=== PATIENT | male | born 1975 | race Caucasian/White ===

== ENCOUNTER 2020-03-21 01:22 | Emergency (ER) | payer OTHER ==
[~2020-03-21] VITALS: Ht 188 cm; Wt 112.0 kg
[2020-03-21 01:34] VITALS: Ht 188 cm; Wt 112.0 kg
[2020-03-21 02:42] LABS: BASOPHIL % 0.2 % (0-2); PLATELET COUNT 196 x10^3mcL (130-400); RED CELL DISTRIBUTION WIDTH 13.3 % (11.5-14.5)
[2020-03-21 03:09] LABS: CALCIUM 9.1 mg/dL (8.5-10.1); CARBON DIOXIDE 30.5 mmol/L (21-32); CHLORIDE SERUM 100 mmol/L (98-107); CREATININE SERUM 1.1 mg/dL (0.7-1.3); GFR1 > 60 mL/min; GLUCOSE SERUM 138 mg/dL (74-106); POTASSIUM SERUM 3.9 mmol/L (3.5-5.1); SODIUM SERUM 137 mmol/L (136-145)
[2020-03-21 03:14] LABS: ALBUMIN 4.1 g/dL (3.4-5.0); ALKALINE PHOSPHATASE 75 U/L (46-116); ALT/SGPT 27 U/L (16-63); AST/SGOT 16 U/L (15-37); BILIRUBIN TOTAL 0.48 mg/dL (0.20-1.00); TOTAL PROTEIN, SERUM 8.3 g/dL (6.4-8.2)
[2020-03-21 04:04] VITALS: BP 192/100
== END 2020-03-21 04:04 | disposition home or self-care (01) ==
LOC: ED 01:22
PROVIDERS: Emergency Medicine
DX: K21.9 Gastro-esophageal reflux disease without esophagitis (principal); I10 Essential (primary) hypertension; Z88.0 Allergy status to penicillin

== ENCOUNTER 2020-03-21 10:10 | Inpatient (IN) | payer OTHER ==
[~2020-03-21] VITALS: Ht 188 cm; Wt 112.1 kg
[2020-03-21 10:44] VITALS: Ht 188 cm; Wt 112.1 kg
[2020-03-21 11:08] LABS: UA SPECIFIC GRAVITY 1.025 (1.005-1.035); microscopic required? YES; urine erythrocyte 2+ (NEGATIVE)
[2020-03-21 11:14] LABS: BASOPHIL % 0 % (0-2); PLATELET COUNT 216 x10^3mcL (130-400); RED CELL DISTRIBUTION WIDTH 13.4 % (11.5-14.5)
[2020-03-21 11:29] LABS: CALCIUM 9.3 mg/dL (8.5-10.1); CARBON DIOXIDE 23.8 mmol/L (21-32); CHLORIDE SERUM 98 mmol/L (98-107); GFR1 > 60 mL/min; GLUCOSE SERUM 160 mg/dL (74-106); POTASSIUM SERUM 3.2 mmol/L (3.5-5.1); SODIUM SERUM 134 mmol/L (136-145)
[2020-03-21 11:39] LABS: ALBUMIN 4.5 g/dL (3.4-5.0); ALKALINE PHOSPHATASE 68 U/L (46-116); ALT/SGPT 29 U/L (16-63); AST/SGOT 20 U/L (15-37); BILIRUBIN TOTAL 0.86 mg/dL (0.20-1.00); LIPASE 70 IU/L (73-393)
[2020-03-21 12:01] LABS: TOTAL PROTEIN, SERUM 8.8 g/dL (6.4-8.2)
[2020-03-21 19:20] VITALS: BP 198/111
[2020-03-21 20:00] VITALS: BP 173/100
[2020-03-21 21:20] LABS: MAGNESIUM 1.7 mg/dL (1.8-2.4); PHOSPHOROUS 2.2 mg/dL (2.5-4.9)
[2020-03-22 00:27] LABS: AMPHETAMINE QUAL UR NONE DETECTED (See below)
[2020-03-22 06:02] VITALS: BP 148/91
[2020-03-22 07:52] LABS: BASOPHIL % 0.1 % (0-2); PLATELET COUNT 170 x10^3mcL (130-400)
[2020-03-22 08:23] LABS: CALCIUM 8.9 mg/dL (8.5-10.1); CARBON DIOXIDE 26.5 mmol/L (21-32); CHLORIDE SERUM 99 mmol/L (98-107); GFR1 > 60 mL/min; GLUCOSE SERUM 122 mg/dL (74-106); PHOSPHOROUS 2.9 mg/dL (2.5-4.9); SODIUM SERUM 135 mmol/L (136-145)
[2020-03-22 10:05] VITALS: BP 150/93
[2020-03-22 11:56] VITALS: BP 142/90
[2020-03-22 16:52] VITALS: BP 134/84
[2020-03-22 20:30] VITALS: BP 142/88
[2020-03-23 05:48] VITALS: BP 142/91
[2020-03-23 06:38] LABS: BASOPHIL % 0.2 % (0-2); PLATELET COUNT 181 x10^3mcL (130-400); RED CELL DISTRIBUTION WIDTH 14.3 % (11.5-14.5)
[2020-03-23 07:04] LABS: CALCIUM 8.4 mg/dL (8.5-10.1); CARBON DIOXIDE 29.5 mmol/L (21-32); CHLORIDE SERUM 104 mmol/L (98-107); GFR1 > 60 mL/min; GLUCOSE SERUM 108 mg/dL (74-106); MAGNESIUM 2.3 mg/dL (1.8-2.4); PHOSPHOROUS 2.7 mg/dL (2.5-4.9); POTASSIUM SERUM 3.8 mmol/L (3.5-5.1); SODIUM SERUM 140 mmol/L (136-145)
[2020-03-23 08:11] VITALS: BP 140/86
[2020-03-23] MEDS ORDERED: LEVAQUIN500 M1 PO (11:06)
[2020-03-23] MEDS ORDERED: COZ50 PO (11:06)
[2020-03-23] MEDS ORDERED: APAP/HYDROCODON1 T13 PO (11:07)
[2020-03-23 14:08] VITALS: BP 140/86
== END 2020-03-23 15:08 | disposition home or self-care (01) | DRG 417 ==
LOC: ED 10:10 → MU 14:51 → DU 14:51 → MU 19:20 → DU 19:57
PROVIDERS: Emergency Medicine; ADMIT Student in an Organized Health Care Education/Training Program; ATTEND Student in an Organized Health Care Education/Training Program
PROC: 0FT44ZZ Resection of Gallbladder, Percutaneous Endoscopic Approach (ICD-10-PCS; principal; 2020-03-21)
DX: K81.0 Acute cholecystitis (principal); N17.0 Acute kidney failure with tubular necrosis; E87.1 Hypo-osmolality and hyponatremia; M16.11 Unilateral primary osteoarthritis, right hip; I10 Essential (primary) hypertension; E83.42 Hypomagnesemia; E87.6 Hypokalemia; R73.9 Hyperglycemia, unspecified; E83.39 Other disorders of phosphorus metabolism; I16.0 Hypertensive urgency; R31.9 Hematuria, unspecified; Z88.0 Allergy status to penicillin; Z83.3 Family history of diabetes mellitus; Z80.6 Family history of leukemia; Z79.899 Other long term (current) drug therapy
CPT/HCPCS: 82962; G0378; J0696; J1956; J2175; J2270; J3010; J3480; J3490; J7030; Q0092; Q9967